=== PATIENT | female | born 1945 | race Caucasian/White ===

== ENCOUNTER 2018-03-17 12:25 | Inpatient (IN) ==
[2018-03-24 12:01] VITALS: BP 133/67
== END 2018-03-24 15:28 | disposition home health service (06) | DRG 552 ==
LOC: N.ED 12:25 → N.EDINP 17:54 → SUATTDRO 17:54 → N.3E 18:55
PROVIDERS: ADMIT Internal Medicine; ATTEND Internal Medicine